=== PATIENT | female | born 1950 | race Caucasian/White ===

== ENCOUNTER → 2016-11-03 | Outpatient (CLI) | payer MEDICARE, OTHER ==
[~2016-11-03] MED LIST: ADVAIR 5001 DISK W/D PO; ALBUTEROL17 GM INH; ASMANEX; ASTELIN137 MCG INH; AVALIDE PO; BENZONATATE PO; CARDIZEM CD PO; DEXILANT60 MG PO; DULERA 200 MCG/13 GM IH; K-DUR20 ME1 PO; KCL PO; LASIX PO; LASIX20 MG PO; LOSARTAN POTAS100 MG PO; LUMIGAN2.5 ML OU; MEDROL PO; MOBIC PO; MOBIC15 MG PO; NASONEX17 GM; PREDNISONE PO; PREVACID PO; REGLAN10 MG; ROBITUSSIN AC PO; SINGULAIR PO; SPIRIVA18 MCG INH; SYMBICORT INH; SYMBICORT80 INH; SYNTHROID PO; TEKTURNA HCT 151 TA1 PO; TUSSIONEX PENN473 ML PO; WELCHOL625 MG PO; XOPENEX1.25 MG/0. NEB; ZEGERID 40 MG C1 CAP PO; [UNRECOGNIZED DRUG - OTHER]; [UNRECOGNIZED DRUG - OTHER]; [UNRECOGNIZED DRUG - OTHER]; [UNRECOGNIZED DRUG - OTHER] PO; [UNRECOGNIZED DRUG - OTHER] PO; [UNRECOGNIZED DRUG - REMARK]
--- NOTE | ~2016-11-03 | MY11 ---
[facility] A Service of [facility] & [facility] RADIOLOGY TEXT RESULTS PATIENT: ORACIO MCKENNA LOCATION: [facility] : 48 UNIT #: [id number] AGE: [address]: Radha Arshad MD SEX: F ORDER DR: [id number] [address] [address] [id number] O MR#: [id number] Acc #: [id number] NAME: ORACIO MCKENNA : 1950 SEX: F STUDY DATE/TIME: 11/03/2016 10:47 UNIT: [facility] ROOM: STUDY DESCRIPTION: MY Mammogram Screening Dig José Luis Attending Physician: Radha Arshad M.D. Referring Physician: Radha Arshad M.D. Ordering Physician: Radha Arshad M.D. Primary Care Physician: Radha Arshad M.D. MEDICAL IMAGING REPORT This report is preliminary unless electronic signature is present. EXAM Digital screening mammogram, 11/03/2016 HISTORY 66-year-old woman no risk elevation. Annual screening. COMPARISON Mammograms date to 08/29/2010 with most recent 06/23/2015. FINDINGS Digital imaging of each breast was completed utilizing a two-view examination of each breast in craniocaudal and mediolateral-oblique projections. Review and interpretation of digital mammograms include a second review in conjunction with FDA-approved CAD device. There is a normal parenchymal presentation bilaterally consistent with the patient's age. There are no breast masses imaged and no parenchymal asymmetry is visualized. There are no suspicious microcalcifications and I see no focal architectural disturbance. IMPRESSION Negative screening digital mammogram. One-year followup recommended. Patients over the age of 40 are entered into a reminder system with target due date for the next mammogram. A result letter will also be sent to the patient. BIRADS: 1 Negative Dictated by... Didier Garcia M.D. THIS IS AN ELECTRONICALLY VERIFIED REPORT Didier Garcia M.D. at 11/07/2016 9:42 AM [facility] A Service of [facility] & [facility] RADIOLOGY TEXT RESULTS PATIENT: ORACIO MCKENNA LOCATION: [facility] : 48 UNIT #: [id number] AGE: [address]: Radha Arshad MD SEX: F ORDER DR: Renny TD: 11/03/2016 11:48 JOB #: [id number] MEDICAL IMAGING REPORT Page 1 of 1
== END | disposition home or self-care (01) ==
LOC: SMAM 10:07
DX: Z12.31 Encounter for screening mammogram for malignant neoplasm of breast (principal)
CPT/HCPCS: G0202